=== PATIENT | male | born 1995 | race Caucasian/White ===

== ENCOUNTER 2025-03-08 07:19 | Emergency (ER) | payer OTHER, SELFPAY ==
--- OUTSIDE RECORDS SUMMARY | 2025-02-27 06:11 | XMS_ITS | Continuity of Care Document ---
Author Organization [facility] Address [address] [place] [address] Phone Care Team Providers Care Operations Label Clerk Name Role Phone Chery Zamorano MD Primary Care Provider Chery Zamorano MD Attending Provider Care Teams Patient Care Team Team Status: Active Member Role/Relationship Status Dates Chery Zamorano MD Primary Care Provider Active Patient Care Team Team Status: Inactive Member Role/Relationship Status Dates Chery Zamorano MD Primary Care Provider Active Start: February 27, 2025 End: February 27, 2025Chery Zamorano MDAttending ProviderActiveStart: February 27, 2025 End: February 27, 2025 Chief Complaint and Reason for Visit Chief Complaint Admit Date stomach issues February 27, 2025 1 0:29am Reason for Visit Admit Date Abdominal pain February 27, 2025 1 0:29am Blood in stool February 27, 2025 1 0:29am Allergies, Adverse Reactions, Alerts Allergen Type Severity Reaction Last Updated Verified Status No Known Allergies Allergy Unknown February 27, 2025 10:33amYesActive Social History Smoking Status Status Start Date End Date Date of Observa tion Ex-smoker (finding) February 27, 2025 10:34am Observation Status Observation Response Date of Response Legal Sex [facility] ([facility]) [facility] Family History Relationship Condition Age at Onset Recorded Date/T kiki Not Specified No pertinent family history Unknown Problems Active Problems Problem Diagnosis/Recorded Date Onset Date Stat us Blood in stool February 24, 2025 12:07pm Unknown Active Abdominal pain February 27, 2025 11:08am Unknown Active Medications Medication Status Dose Units Route Directions Qty Days Refills S tart Date Stop Date End Date Reason(s) Instructions Adherence Ondansetron 8 mg tablet,disintegrating Discontinued 8 MG PO As Directed as needed for Nausea July 24, 2020 11:00pmFebruary 27, 2025 11:02amFamotidine 20 mg tablet Gchjrywraekm93CQQTRcutzUqs 2020 11:00pmMay 2020 1:11pmPantoprazole 40 mg tablet,delayed release (DR/EC)Flsppkqyzszw82XWWTCgfxe thkrb009331Vsk 4th, 2021 11:00pmDecemb2024 11:02amSucralfate 100 mg/mL suspension Yfryoteuqcaa9MMKZYtegp times kdmjf110814Kyg 2020 11:00pmDece2024 11:02amPantoprazole 40 mg tablet,delayed release (DR/EC)Yegjmg64ACQWKvatw732 February 27, 2025 12:00amComplies with drug therapyOndansetron 4 mg tablet,aiiojxpycbvgqtIfxcvv2UAEHP7N075Hesaitpd 8th, 2025 12:00amComplies with drug therapy Vital Signs Vital Reading Result Reference Range Collection Date/Time Height 68 [in_i] February 27, 2025 10:00fdKxlhrm70.93 kgFebruary 27, 2025 10:33amHeart Rate74 /zwh51-482JrxijbcnFebruary 27, 2025 10:33amBP Wwjtycpk580 mm[Hg]100-140February 27, 2025 10:33amBP Ybkxvrfkp60 mm[Hg]60-100Dece2024 10:33amBMI (Body Mass Index)24.7 kg/s0KflyermrFebruary 27, 2025 10:33am Advance Directives Advance Directive Response Recorded Date/ Time Advance Directives No July 19 021 12:09pm Insurance Providers Guarantor Pato Roy Address [address] [place] [id number] Info.Home Phone: Coverage Status Update:2025 Payer Group Member ID Coverage Type Subscriber Relationship to Subscriber Effective Date Expiration Date Cheyenne HAGAN/RALPH Standard Tech Id: [id number] [place] Id: [id number] [facility] [address] Home Phone: Email: declinedSelfUnited Healthcare [id number] Manuela Id: [id number] [address] [facility] [address] Home Phone: Email: declinedSelf Encounters Encounter Location(s) Arrival/Admit Date Discharge/Departure Date Discharge/Departure Disposition Provider(s) Departed Physician/ Provider Office Visit -[facility] February 27, 2025 10:29am February 27, 2025 11:10am Discharged to home care or self care (routine discharge) Chery Zamorano MD Recent Diagnosis Onset Date Admit Date Abdominal pain Unknown February 27 10:29am Blood in stool Unknown February 27 10:29am Assessments Diagnosis Onset Date Resolution Status Admit Date Abdominal pain acuteDece2024 10:29amBlood in stoolacuteDece2024 10:29am Plan of Treatment Future Tests Future scheduled test information is unavailable Pending Tests Test Name Ordered Date Scheduled Date Comprehensive Metabolic Panel February 27, 2025 11:06am Future Visits Future appointment information is unavailable Future Procedures Procedure Name Ordered Date Scheduled Date Complete Blood Count Auto Diff February 27 11:06am Future Medications Future medication information is unavailable Patient Instructions Patient instructions are unavailable
[2025-03-08] VITALS (64 sets, daily range): BP systolic 86–162; BP diastolic 55–82; PULSE 78–149; TEMP 36.4; O2SAT 88–99; BMI 24.3
--- NOTE | 2025-03-08 07:22 | ECG_ITS ---
[facility] Test Date: 2025-03-08 Pat Name: Pato Roy Department: Room: - Gender: Male Craps Manager: : 1995 Requested By: ANGELIA CULP Order Number: [id number] Reading MD: RADHA FITCH M.D. Measurements Intervals [place] Rate: 152 P: -17432 IN: -23429 QRS: 70 QRSD: 98 T: 42 QT: 328 QTc: 414 Interpretive Statements Atrial fibrillation with rapid ventricular response [address] depression, probably digitalis effect [address] & Twave abnormality, probably digitalis effect ARTIFACT PRESENT 9150 abnormal ECG Compared to ECG 06/26/2020 19:30:45 ST (T wave) deviation now present Sinus rhythm no longer present Electronically Signed On 03-08-2025 20:55:21 EST by RADHA FITCH M.D.
[2025-03-08 07:39] LABS: Hematocrit 45.8 % (42.0-54.0); Hemoglobin 14.5 g/dL (14.0-18.0); Mean Corpuscular HGB Conc 31.7 g/dL (29.9-35.2); Mean Corpuscular Hemoglobin 30.4 pg (25.9-34.0); Mean Corpuscular Volume 96.0 fL (80.0-94.0); Platelet Count 480 10^3/uL (150-450); Red Blood Count 4.77 10^6/uL (4.70-6.10); White Blood Count 29.3 10^3/uL (4.0-11.0)
--- NOTE | 2025-03-08 07:51 | ED_ITS ---
HPI HPI - General Adult General Chief complaint: Overdose Stated complaint: overdose Time Seen by Provider: 03/08/25 07:22 History of Present Illness HPI narrative: The patient is a 30-year-old male with a known past medical history of unidentified drug use. He was brought in by [facility] secondary to altered level of consciousness. He was apparently found in the driveway of his parents home in his vehicle. First responders responded on scene and the please officers arrived and gave the patient Narcan 12 mg intranasally. The patient became more responsive. Then, the patient was transported to the emergency department for further evaluation and care. When the patient arrives he is laying in the right lateral recumbent position and is shivering. He does not provide any history or is not engaging at all. History is limited. Related Data Home Medications ?Medication ?Instructions ?Recorded ?Confirmed pantoprazole 40 mg tablet,delayed 40 mg PO DAILY 03/0803/08/25 release Allergies Allergy/AdvReac Type Severity Reaction Status Date / Time No Known Drug Allergies Allergy Verified 03/08/25 08:34 Opioid HPI Opioid Management Most Recent Opioid Data: Ur Phencyclidine Scrn, (NEGATIVE) Negative Today, 10:22 Review of Systems ROS Narrative History is unable to be obtained secondary to present condition. Exam Narrative Exam Narrative: Prior to examining the patient, I have washed with hospital approved and provided Antiseptic Hand Commercial Attache and have also applied gloves.? Prior to touching the patient, I asked for consent to examine the patient.? General: Alert and patient is somnolent, well nourished, mild distress. Eye: PERRL, EOMI, normal conjunctiva. 5 mm and reactive but sluggish. HENT: Normocephalic, normal hearing, moist oral mucosa, no scleral icterus, no sinus tenderness. Neck: Supple, non-tender, no carotid bruits, no JVD, no lymphadenopathy. Lungs: Clear to auscultation and percussion, non-labored respiration. Heart: Tachycardic rate, regular rhythm, no murmur, gallop or edema. Abdomen: Soft, non-tender, non-distended, normal bowel sounds, no masses. Musculoskeletal: Normal range of motion and strength, no tenderness or swelling. Skin: Skin is warm, dry and pink, no rashes or lesions. Numerous tattoos. Neurologic: Awake, arouses to loud verbal and noxious stimulation. CN II-XII intact. Psychiatric: Patient appears to have some mild psychomotor agitation and is uncooperative with following commands. Following the conclusion of the examination, I have washed my hands thoroughly after removing examination gloves. Constitutional Vital Signs, click to edit/add: Last Vital Signs Temp 97.5 F L 03/08/25 07:30 Pulse 90 03/08/25 12:30 Resp 17 03/08/25 12:30 BP 105/79 03/08/25 12:30 Pulse Ox 93 L 03/08/25 12:30 O2 Del Method Room Air 03/08/25 09:54 O2 Flow Rate 2 03/08/25 09:55 Course Course Hospital Course: Patient arrived via EMS. The had no complaints of pain on arrival. Reevaluation(s) Reevaluation #1: Patient felt very nauseous and began to vomit. As soon as he started vomiting it was dark red blood. It is not coffee-ground it is maroon in color. Patient reports that he has had this before. Patient cannot tell me his treatment history as he is actively vomiting and not really communicating anything regarding his HPI. Therefore, I ordered Zofran 4 mg IV push initially. When that was not effective I ordered Reglan 10 mg IV push and Benadryl 25 mg IV push. In addition, I added Protonix 80 mg IV push. I considered adding octreotide at this time but it is not bright red blood. Time: 07:32 Reevaluation #2: Mom arrives and I going to talk with her about the patient's presentation. She stated that he has no history of drug use. She is similar with the symptoms as the patient's sister dried of a fentanyl overdose 2 years ago. But they state he does not do drugs. Patient's girlfriend admits he does do marijuana she does not know how many times a week. Patient does not disclose that information. Mother states that the patient does have a history of longstanding abdominal pain and abdominal problems. He was last scoped a year ago and had an EGD and a colonoscopy without any significant findings. He is in constant pain and discomfort though and takes pantoprazole and Zofran per his physician who just prescribed those medications this week. Patient's nausea at this point is controlled. The plan is to obtain a UDS, repeat the CBC to make sure that white blood cell count was elevated simply from stress and make sure that the hemoglobin is stable. In addition, we need to make sure that the lactic acid is going down and I do believe the troponin as well. Once these come down we can initiate transfer to a higher level of care. Time: 08:10 Consultations Consultation #1: I had an opportunity to speak with Dr. Joseph. He was very helpful in facilitating discussion about this patient. He states that this time there is no reason to do an endoscopy. He states that he has a known history of gastric irritation. He states maybe with the vomiting he has a Janet-Salas tear which will heal. He recommends 8 weeks of proton pump inhibitors before he would even consider doing anything and then he could follow-up after that time. He does not think in light of his recent overdose that a scope would be safe or beneficial for this patient. He thinks that the patient would be safe to stay here as there is nothing for him to do and he would not scope the patient. Time: 09:09 Vital Signs Vital signs: Vital Signs Pulse Rate 144 H 03/08/25 07:27 Respiratory Rate 35 H 03/08/25 07:27 Pulse Oximetry 99 03/08/25 07:27 Temperature 97.5 F L 03/08/25 07:30 Pulse Rate 90 03/08/25 12:30 Respiratory Rate 17 03/08/25 12:30 Blood Pressure 105/79 03/08/25 12:30 Pulse Oximetry 93 L 03/08/25 12:30 Oxygen Delivery Method Room Air 03/08/25 09:54 Oxygen Delivery Flow Rate 2 03/08/25 09:55 Medical Decision Making [facility] Narrative Medical decision making narrative: The patient is a very complex 30-year-old male who presented to the emergency department status post being unconscious in a vehicle for an undisclosed amount of time. The patient first of all was found to have leukocytosis. The leukocytosis did improve with 2 L of fluid in time. This may be secondary to stress demargination as I do not appreciate any infectious etiology for this leukocytosis. Next, the patient had prominent lactic acidosis with a lactic acid of 10. With fluids it did improve to 2.8. The patient had a glucose of over 500 in the field. Our glucose was 362. The patient had a urine analysis that did show greater than 1000 glucose. He may be a new onset diabetic. He had Just trace ketones present. No evidence of urinary tract infection. His urine analysis revealed positive for methamphetamine, cocaine, and marijuana. He did not have a positive opioid screen but fentanyl does not often show up in an opioid drug screen secondary to his synthetic nature. The patient's troponin is elevated and continue to elevate while he was in the emergency department. The patient never had chest pain or shortness of breath. The troponin leak may be secondary to the atrial fibrillation with rapid ventricular response. It could potentially be from hypotension or hypoxia from being unconscious from a likely opioid overdose. What brought the patient back around was 12 mg of intranasal Narcan. This would not reverse cocaine. This would not be reversing methamphetamine. Therefore the patient had a concomitant ingestion of fentanyl that is not appearing in his urine drug screen. Alcohol level was negative. The patient has a creatinine of 1.5 this is elevated for young man of his age. This may be secondary to dehydration versus hypoperfusion. Dr. Medina again indicated that the patient is not a candidate for scope. There has been no active bleeding since I gave the patient Zofran, Benadryl, Reglan, GI cocktail. He also had Protonix 80 mg IV push. Since then the patient has been on a clear liquid diet without any evidence of nausea or vomiting. I spoke to Dr. Rodriguez at 1238 at [facility] who did agree to accept the patient in transfer. I tried to admit him to the [facility]. However, it was ill-advised since the patient had methamphetamine, cocaine, elevated troponins as well as Brugada pattern on his EKG that he might be best served at a higher level of care. Differential Diagnosis Differential Diagnosis: Opiate overdose, polypharmacy abuse, upper GI bleed, electrolyte derangemen Medical Records Medical records reviewed: Yes I reviewed the patient's medical records Lab Data Lab results reviewed: Yes I reviewed the patient's lab results Lab results narrative: Patient has a profound elevation in his white blood cell count at 25.3 thousand. This may be from infection versus stress demargination. The repeat was performed and shows that his white blood cell count improved to 7.9 in 2 hours and his hemoglobin did drop to 12.5 with a hematocrit of 37.5. However for both, I did provide 2 L of normal saline. Therefore this could be a factor of hemodilution. The patient did have a lactic acid of 10.4. It is now 2.8. This is very favorable. Next, the patient did have an elevated troponin. It was 167 on first draw. Hendrix bsequent draw was 388.9. Labs: Lab Results 03/08/25 03/08/25 03/08/25 Range/Units 07:30 09:33 10:22 WBC 29.3 H 17.9 H (4.0-11.0) 10^3/uL RBC 4.77 4.12 L (4.70-6.10) 10^6/uL Hgb 14.5 12.5 L (14.0-18.0) g/dL Hct 45.8 37.5 L (42.0-54.0) % MCV 96.0 H 91.0 (80.0-94.0) fL MCH 30.4 30.3 (25.9-34.0) pg MCHC 31.7 33.3 (29.9-35.2) g/dL RDW 12.3 12.4 (11.0-15.0) % Plt Count 480 H 315 (150-450) 10^3/uL MPV 10.1 9.5 (9.5-13.5) fL Neut % (Auto) 83.6 H (43.0-75.0) % Lymph % (Auto) 6.0 L (20.5-60.0) % [place] % (Auto) 8.3 (1.7-12.0) % Eos % (Auto) 0.0 L (0.9-7.0) % Baso % (Auto) 0.3 (0.2-2.0) % Neut # (Auto) 15.0 H (1.4-6.5) 10^3/uL Lymph # (Auto) 1.1 L (1.2-3.8) 10^3/uL [place] # (Auto) 1.5 H (0.3-0.8) 10^3/uL Eos # (Auto) 0.0 (0.0-0.7) 10^3/uL Baso # (Auto) 0.1 (0.0-0.1) 10^3/uL Abs Immat Gran (auto) 0.32 H (0.00-0.03) 10^3/uL Seg Neuts % (Manual) 79.0 H (43.0-75.0) Band Neutrophils % 7.0 H (0-5) % Lymphocytes % (Manual) 13.0 L (20.5-60.0) % Monocytes % (Manual) 1.0 L (1.7-12.0) % Eosinophils % (Manual) 0.0 L (0.9-7.0) % Basophils % (Manual) 0.0 L (0.2-2.0) % Imm/Tot Granulo (auto) 1.8 H (0.0-0.5) % Neutrophils # (Manual) 23.14 H (1.4-6.5) 10^3/uL Band Neutrophils # 2.1 H (0.0-0.3) 10^3/uL Lymphocytes # (Manual) 3.80 (1.20-3.80) 10^3/uL Monocytes # (Manual) 0.29 L (0.30-0.80) 10^3/uL Eosinophils # (Manual) 0.00 (0.00-0.70) 10^3/uL Basophils # (Manual) 0.00 (0.00-0.10) 10^3/uL Sodium 147 H (136-145) mmol/L Potassium 4.5 (3.5-5.1) mmol/L Chloride 104 (98-107) mmol/L Carbon Dioxide 23.8 (21.0-32.0) mmol/L Anion Gap 23.7 BUN 14.0 (7.0-18.0) mg/dL Creatinine 1.53 H (0.70-1.30) mg/dL Est GFR ( Amer) >60 (>=60 mL/min/1.73m^2) Est GFR (Non-Af Amer) 53 L (>=60 mL/min/1.73m^2) BUN/Creatinine Ratio 9.2 Glucose 362 H (74-106) mg/dL Lactate 10.4 H* 2.8 H* (0.4-2.0) mmol/L Calcium 9.2 (8.5-10.1) mg/dL Total Bilirubin 0.1 L (0.2-1.0) mg/dL AST 17 (15-37) U/L ALT 25 (16-63) U/L Alkaline Phosphatase 88 (46-116) U/L Total Creatine Kinase 216 (39-308) U/L Troponin I High Sens 167.8 H* 388.9 H* (4.0-76.1) pg/mL Total Protein 8.0 (6.4-8.2) g/dL Albumin 4.3 (3.4-5.0) g/dL Globulin 3.7 g/dL Albumin/Globulin Ratio 1.2 Urine Color Lt. yellow (YELLOW) Urine Clarity Clear (CLEAR) Urine pH 6.0 (5.0-9.0) Ur Specific [place] 1.025 (1.005-1.025) Urine Protein Negative (NEG/TRACE) mg/dL Urine Glucose (UA) >=1000 A (NEGATIVE) mg/dL Urine Ketones Trace A (NEGATIVE) mg/dL Urine Occult Blood Negative (NEGATIVE) Urine Nitrite Negative (NEGATIVE) Urine Bilirubin Negative (NEGATIVE) Urine Urobilinogen 0.2 (0.2-1.0) EU/dL Ur Leukocyte Esterase Negative (NEGATIVE) Urine RBC None seen (0-2) #/HPF Urine WBC None seen (NONE SEEN) #/HPF Ur Squamous Epith Cells Rare (NONE/RARE) #/LPF Urine Crystals None seen (None Seen) #/HPF Urine Bacteria Trace A (NONE SEEN) #/HPF Urine Casts None seen (NONE SEEN) #/LPF Urine Mucus None seen (NONE SEEN) Ur Culture Indicated? No Salicylates <2.8 (<=19.9) mg/dL Urine Opiates Screen Negative (NEGATIVE) Ur Buprenorphine Scrn Negative (NEGATIVE) Ur Oxycodone Screen Negative (NEGATIVE) Urine Methadone Screen Negative (NEGATIVE) Acetaminophen <2.0 L (10.0-30.0) ug/mL Ur Barbiturates Screen Negative (NEGATIVE) U Tricyclic Antidepress Negative (NEGATIVE) Ur Phencyclidine Scrn Negative (NEGATIVE) Ur Amphetamines Screen Negative (NEGATIVE) U Methamphetamines Scrn Positive A (NEGATIVE) U Benzodiazepines Scrn Negative (NEGATIVE) Urine Cocaine Screen Positive A (NEGATIVE) U Cannabinoids Screen Positive A (NEGATIVE) Ethanol Quant <3 mg/dL Imaging Data Chest x-ray: Radiologist's impression: ITS Impressions Chest X-Ray 03/08/25 08:20 IMPRESSION: NO ACUTE FINDINGS Impression dictated by: María Elena Olea M.D. 03/08/2025 9:25 AM Dictation Location[facility] Electronically authenticated by: [id number] Y Date: 03/08/2025 09:25 ECG Data Attestation: I personally reviewed and interpreted this ECG as follows: (Twelve- lead EKG appears to be atrial fibrillation with rapid ventricular response. QRS duration is normal. ST segments are depressed in the inferolateral leads. Summary: Abnormal EKG.) Interpretation: EKG #2 08:24 the patient's second EKG reveals that he is now in a sinus rhythm. Ventricular rate is 88 bpm. The MI interval is normal. QRS duration is normal. I am however concerned about the morphology of V2. 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 Critical Care Time Critical Care Time Critical Care Time: Yes Total Critical Care Time: 55 Attestation: Critical care time of 55 minutes was needed for the treatment of prevention of clinically significant and life-threatening cardiac arrhythmia, electrolyte abnormality, rule out infectious etiology, rule out ischemic causes of his presentation as well as ruling out an overdose. Patient necessitated immediate physical examination and numerous repeat physical examinations especially when he was having GI bleeding. The patient at this time appears to be in stable condition secondary to moody action and assessment with our staff. Discharge Plan Discharge Chief Complaint: Overdose Clinical Impression: Brugada pattern on electrocardiogram, Overdose, Acute upper gastrointestinal bleeding, Leukocytosis, Acute lactic acidosis, Polysubstance dependence including opioid type drug with complication, episodic abuse, Elevated troponin Patient Disposition: [facility] Time of Disposition Decision: 12:40 Discharge Location: [facility] Condition: Fair Mode of Transportation: EMS
[2025-03-08 07:58] LABS: Alanine Aminotransferase 25 U/L (16-63); Albumin Globulin Ratio 1.2; Albumin Level 4.3 g/dL (3.4-5.0); Alkaline Phosphatase 88 U/L (46-116); Anion Gap 23.7; Aspartate Amino Transferase 17 U/L (15-37); Blood Urea Nitrogen 14.0 mg/dL (7.0-18.0); Calcium 9.2 mg/dL (8.5-10.1); Carbon Dioxide 23.8 mmol/L (21.0-32.0); Chloride 104 mmol/L (98-107); Estimated GFR (African America >60 (>=60 mL/min/1.73m^2); Estimated GFR (Non-African Ame 53 (>=60 mL/min/1.73m^2); Globulin 3.7 g/dL; Glucose 362 mg/dL (74-106); Potassium 4.5 mmol/L (3.5-5.1); Segmented Neut Absolute Manual 23.14 10^3/uL (1.4-6.5); Segmented Neutrophils % Manual 79.0 (43.0-75.0); Sodium 147 mmol/L (136-145); Total Protein 8.0 g/dL (6.4-8.2)
[2025-03-08 07:59] LABS: Band Neutrophils Absolute 2.1 10^3/uL (0.0-0.3); Basophils Abs Manual 0.00 10^3/uL (0.00-0.10); Basophils Percent Manual 0.0 % (0.2-2.0); Eosinophils Absolute Manual 0.00 10^3/uL (0.00-0.70); Eosinophils Percent Manual 0.0 % (0.9-7.0); Lymphocytes Absolute Manual 3.80 10^3/uL (1.20-3.80); Lymphocytes Percent Manual 13.0 % (20.5-60.0); Monocytes Absolute Manual 0.29 10^3/uL (0.30-0.80); Monocytes Percent Manual 1.0 % (1.7-12.0)
[2025-03-08] MEDS: DIPHENHYDRAMINE HCL 50 MG/ML VIAL 25 MG IVP (08:00)
[2025-03-08] MEDS: METOCLOPRAMIDE HCL 10 MG/2 ML VIAL IVP (08:00)
[2025-03-08] MEDS: PANTOPRAZOLE SODIUM 40 MG VIAL 80 MG IV (08:00)
[2025-03-08 08:03] LABS: Acetaminophen <2.0 ug/mL (10.0-30.0); Creatine Kinase 216 U/L (39-308); Salicylate <2.8 mg/dL (<=19.9)
[2025-03-08] MEDS: 0.9 % SODIUM CHLORIDE 1,000 ML 1000 ML IV ×2 (08:05→09:03)
[2025-03-08 08:17] LABS: Lactate/Lactic Acid 10.4 mmol/L (0.4-2.0)
--- NOTE | 2025-03-08 08:19 | PC.NURSE ---
pt arrived to EMS awake but not alert. very lethargic but breathing. IV in place. BS for EMS was 502. Pt nauseous and vomiting maroon colored vomit. states this isn't a new thing -- happened a year go but unsure of what the result was. also, last bloody stool 2 weeks ago. saw Chery Zamorano for this and was prescribed some meds for home. pt unwilling to say what drugs he's taken but does admit to drinking
--- NOTE | 2025-03-08 08:20 | XR_ITS ---
The [place] [id number] Patient Name: ABDOULAYE CASEY MRN: [id number] date: 1995 Sex: M Assigned Patient Location: ED.MAIN Current Patient Location: ED.MAIN Accession/Order Number: [id number] Exam Date: 03/08/2025 08:15 Report Date: 03/08/2025 09:25 At the request of: CEE GOODE DO Procedure: XR chest 1V PORTABLE AP ERECT CHEST 0818 hours CLINICAL HISTORY: Decreased responsiveness. Vomiting. Overdose. COMPARISON: None The heart is within normal limits. There is no vascular congestion. The lungs, as visualized, are clear. There is no effusion or pneumothorax. The osseous structures are intact. XR/XR chest 1V IMPRESSION: NO ACUTE FINDINGS Impression dictated by: María Elena Olea M.D. 03/08/2025 9:25 AM Dictation Location: [place] [address] Electronically authenticated by: [id number] Y Date: 03/08/2025 09:25
--- OUTSIDE RECORDS SUMMARY | 2025-03-08 09:12 | XMS_ITS | Clinical Summary ---
Author Organization [facility] tem Address [id number] [address] [place] [address] Care Team Providers Care Sugar Drier Name Role Phone Chery Zamorano MD Primary Care Provider [phone] Allergies No known active allergies Medications No known medications Social History Tobacco UseTypesPacks/DayYears UsedDateSmoking Tobacco: FormerSmokeless Tobacco: Former Tobacco Cessation:Counseling Given: Not Answered Alcohol UseStandard Drinks/WeekCommentsNever0 (1 standard drink = 0.6 oz pure alcohol)ChildcareAnswerDate RjdukgkpCjzyqtslpCwmrogp02/12/2019EmploymentAnswer Date ZgkhxixnZexaqqtrxnOwffjtd27/12/2019Hunger ScreeningAnswerDate Recorded Within the past 12 months we worried whether our food would run out before we got money to buy more.Never True12/21/2022Within the past 12 months the food we bought just didn't last and we didn't have money to get more.Never True 12/21/2022Sex and Gender InformationValueDate RecordedSex Assigned at BirthNot on fileLegal UtkHexj1010/26/2014 11:57 AM EDTGender IdentityNot on fileSexual OrientationNot on file Last Filed Vital Signs Vital SignReadingTime TakenCommentsBlood Ssxvjgeo556/7110 12:40 AM EDT Uommw7643 12:40 AM HBLWukxhlktkhn60.5 ??C (97.7 ??F)12/21/2022 10:42 PM EDTRespiratory Jsoi5456 12:40 AM EDTOxygen Vpnlzvdeww372%12/22/2022 12:40 AM EDTInhaled Oxygen Concentration--Nyisbh60 kg (150 lb)12/21/2022 10:42 PM SJBQmjhia990.7 cm (5' 8 )12/21/2022 10:42 PM EDTBody Mass Index22.81 12/21/2022 10:42 PM EDT Plan of Treatment Not on file Medical Devices Not on file Insurance * Guarantor: [facility] TypeRelation to PatientDate of PhoneBilling AddressCorporateOther [address] [place] [address] Care Teams Team MemberRelationshipSpecialtyStart DateEnd Chery Zamorano MD [address] [place] [address] PCP - GeneralFamily Mvjbygce80/1/23
[2025-03-08 09:39] LABS: Hematocrit 37.5 % (42.0-54.0); Hemoglobin 12.5 g/dL (14.0-18.0); Immature Granulocytes Abs Auto 0.32 10^3/uL (0.00-0.03); Immature Granulocytes Pct Auto 1.8 % (0.0-0.5); Lymphocytes Absolute Auto 1.1 10^3/uL (1.2-3.8); Mean Corpuscular HGB Conc 33.3 g/dL (29.9-35.2); Mean Corpuscular Hemoglobin 30.3 pg (25.9-34.0); Mean Corpuscular Volume 91.0 fL (80.0-94.0); Platelet Count 315 10^3/uL (150-450); Red Blood Count 4.12 10^6/uL (4.70-6.10); White Blood Count 17.9 10^3/uL (4.0-11.0)
--- NOTE | 2025-03-08 09:55 | PC.NURSE ---
pt falling asleep
[2025-03-08 10:16] LABS: Lactate/Lactic Acid 2.8 mmol/L (0.4-2.0)
[2025-03-08 10:28] LABS: Glucose Urine UA >=1000 mg/dL (NEGATIVE)
[2025-03-08 10:35] LABS: Cast Seen? NONE SEEN #/LPF (NONE SEEN); Crystals Seen? None Seen #/HPF (None Seen); Urine Culture Indicated NO
[2025-03-08 10:40] LABS: Cannabinoid Screen Urine POSITIVE (NEGATIVE); Methamphetamines Screen Urine POSITIVE (NEGATIVE); Tricyclic Antidepressant Urine NEGATIVE (NEGATIVE)
== END 2025-03-08 15:18 | disposition short-term general hospital (02) ==
PROVIDERS: Emergency Provider Emergency Medicine; PCP Family Medicine
DX: T40.2X1A Poisoning by other opioids, accidental (unintentional), initial encounter (principal); T40.5X1A Poisoning by cocaine, accidental (unintentional), initial encounter; R40.4 Transient alteration of awareness; I49.8 Other specified cardiac arrhythmias; K92.2 Gastrointestinal hemorrhage, unspecified; D72.829 Elevated white blood cell count, unspecified; E87.20 Acidosis, unspecified; F19.20 Other psychoactive substance dependence, uncomplicated; R79.89 Other specified abnormal findings of blood chemistry
CPT/HCPCS: 36415; 71045; 80053; 80179; 80307; 80320; 80329; 81001; 82550; 83605; 84484; 85007; 85025; 85027; 93005; 96361; 96374; 96375; 99284; J1200; J2405; J2765